=== PATIENT | female | born 1970 | race Caucasian/White ===

== ENCOUNTER 2020-01-04 20:42 | Outpatient (CLI) | payer MEDICAID | END 2020-01-04 20:43 | disposition critical access hospital (66) | LOC: EMS 20:42 → MERGE 20:42 → EMS 20:43 | PROVIDERS: ATTEND Surgery | DX: R46.89 Other symptoms and signs involving appearance and behavior (principal) | CPT/HCPCS: A0425; A0429; A0999 ==

== ENCOUNTER 2020-01-04 20:59 | Emergency (ER) | payer MEDICAID ==
--- NOTE | 2020-01-04 21:08 | ED Physician Documentation ---
PD HPI OVERDOSE - Stated complaint Stated Complaint: NON VERBAL - History obtained from History obtained from: EMS - History of Present Illness Timing - onset: Other (Reportedly has been seen by law enforcement several times over the last few days after using methamphetamines. Today laid down in the ditch without specific complaint. She is cooperative but pretty much nonverbal.) Review of Systems Unable to obtain: Confused PD PAST MEDICAL HISTORY - Past Medical History Past Medical History: Yes - Allergies Allergies/Adverse Reactions: Allergies Allergy/AdvReac Type Severity Reaction Status Date / Time No Known Drug Allergies Allergy Verified 01/04/20 22:43 - Social History Smoking Status: Current every day smoker Does the pt have substance abuse?: Yes Substance Use and Type: Meth - Family History Family history: reports: Non contributory PD ED PE NORMAL - Vitals Vital signs reviewed: Yes - General General: No acute distress, Other (She will follow simple commands and open her eyes and look around. She is trying to keep her ears covered. She smells heavily of tobacco methamphetamines. She is responsive though, for example when I mention her breath she covers her mouth for a while.) - HEENT HEENT: PERRL, EOMI, Other (Poor dentition) - Neck Neck: Supple, no meningeal sign, No bony TTP - Cardiac Cardiac: RRR, No murmur - Respiratory Respiratory: No respiratory distress, Clear bilaterally - Abdomen Abdomen: Normal bowel sounds, Soft, Non tender - Back Back: No CVA TTP, No spinal TTP - Derm Derm: Normal color, Warm and dry - Extremities Extremities: No edema, No calf tenderness / cord Results - Vitals Vitals: Vital Signs - 24 hr 01/04/20 01/04/20 21:00 22:35 Temperature 36.9 C Heart Rate 74 67 Respiratory 17 15 Rate Blood Pressure 110/61 104/67 O2 Saturation 98 96 Oxygen O2 Source Room air - Labs Labs: Laboratory Tests 01/04/20 01/04/20 01/04/20 21:30 21:30 22:09 WBC 13.8 H RBC 4.35 Hgb 12.5 Hct 37.9 MCV 87.1 MCH 28.7 MCHC 33.0 RDW 14.5 Plt Count 243 MPV 10.5 Neut # (Auto) 9.9 H Lymph # (Auto) 2.5 Mcculloch # (Auto) 1.1 H Eos # (Auto) 0.2 Baso # (Auto) 0.1 Absolute Nucleated RBC 0.00 Nucleated RBC % 0.0 Sodium 136 Potassium 3.5 Chloride 104 Carbon Dioxide 21 Anion Gap 11.0 BUN 20 Creatinine 0.8 Estimated GFR (MDRD) 77 L Glucose 107 H Calcium 8.9 Total Bilirubin 0.9 AST 25 ALT 14 Alkaline Phosphatase 83 Total Creatine Kinase 651 H Total Protein 7.2 Albumin 4.1 Globulin 3.1 Albumin/Globulin Ratio 1.3 Lipase 40 Urine Color DARK YELLOW Urine Clarity HAZY Urine pH 5.5 Ur Specific Yeoman >=1.030 H Urine Protein TRACE Urine Glucose (UA) NEGATIVE Urine Ketones 15 H Urine Occult Blood LARGE H Urine Nitrite NEGATIVE Urine Bilirubin NEGATIVE Urine Urobilinogen 0.2 (NORMAL) Ur Leukocyte Esterase NEGATIVE Urine RBC 6-10 H Urine WBC 0-3 Ur Squamous Epith Cells MANY Squamous H Urine Bacteria Many H Ur Microscopic Review INDICATED Urine Culture Comments NOT INDICATED Urine HCG, Qual NEGATIVE Salicylates < 6.0 Urine Opiates Screen POSITIVE H Ur Oxycodone Screen NEGATIVE Urine Methadone Screen NEGATIVE Ur Propoxyphene Screen NEGATIVE Acetaminophen < 10 L Ur Barbiturates Screen NEGATIVE Ur Tricyclics Screen NEGATIVE Ur Phencyclidine Scrn NEGATIVE Ur Amphetamine Screen POSITIVE H U Methamphetamines Scrn POSITIVE H U Benzodiazepines Scrn NEGATIVE Urine Cocaine Screen NEGATIVE U Cannabinoids Screen POSITIVE H Ethyl Alcohol < 5.0 PD MEDICAL DECISION MAKING - ED course ED course: 49yo woman with meth intox, nonverbal but cooperative. S/O to Dr Mixon at Shift g. metabolize versus SW in AM. Departure - Departure Clinical Impression: Methamphetamine intoxication
[2020-01-04 21:40] LABS: BASOPHILS # (AUTO) 0.1 10^3/uL (0.0-0.1); BASOPHILS % (AUTO) 0.7 %; EOSINOPHILS # (AUTO) 0.2 10^3/uL (0.0-0.7); EOSINOPHILS % (AUTO) 1.6 %; HGB - HEMOGLOBIN 12.5 g/dL (12.0-16.0); LYMPHOCYTES # (AUTO) 2.5 10^3/uL (1.5-3.5); LYMPHOCYTES % (AUTO) 17.8 %; MEAN CORPUSCULAR HEMOGLOBIN 28.7 pg (27.0-31.0); MEAN CORPUSCULAR VOLUME 87.1 fL (81.0-99.0); MEAN PLATELET VOLUME 10.5 fL (7.9-10.8); MONOCYTES # (AUTO) 1.1 10^3/uL (0.0-1.0); MONOCYTES % (AUTO) 7.7 %; NEUTROPHILS # (AUTO) 9.9 10^3/uL (1.5-6.6); NEUTROPHILS % (AUTO) 71.8 %; PLT - PLATELET COUNT 243 10^3/uL (130-450); RED BLOOD COUNT 4.35 10^6/uL (4.20-5.40); RED CELL DISTRIBUTION WIDTH 14.5 % (12.0-15.0); WHITE BLOOD COUNT 13.8 x10^3/uL (4.8-10.8)
[2020-01-04 22:00] LABS: ACETAMINOPHEN < 10 ug/mL (10-30); ALBUMIN 4.1 g/dL (3.2-5.5); ALBUMIN/GLOBULIN RATIO 1.3 (1.0-2.2); ALKALINE PHOSPHATASE 83 IU/L (42-121); ALT ALANINE AMINOTRANSFERASE 14 IU/L (10-60); AST ASPARTATE AMINOTRANSFERASE 25 IU/L (10-42); BILIRUBIN,TOTAL 0.9 mg/dL (0.2-1.0); BUN - BLOOD UREA NITROGEN 20 mg/dL (6-20); CALCIUM 8.9 mg/dL (8.5-10.3); CARBON DIOXIDE - CO2 21 mmol/L (21-32); CHLORIDE 104 mmol/L (101-111); CK- CREATINE KINASE 651 IU/L (22-269); CREATININE 0.8 mg/dL (0.4-1.0); GLUCOSE 107 mg/dL (70-100); LIPASE 40 U/L (22-51); SALICYLATE < 6.0 mg/dL; SODIUM 136 mmol/L (135-145); TOTAL PROTEIN 7.2 g/dL (6.7-8.2)
[2020-01-04 22:16] LABS: MUDS CUTOFF CONCENTRATIONS CUTOFF CONC BELOW:
[2020-01-04 22:19] LABS: BILIRUBIN,URINE NEGATIVE (NEGATIVE); GLUCOSE, URINE (UA) NEGATIVE (NEGATIVE); KETONES,URINE (UA) 15 mg/dL (NEGATIVE); LEUKOCYTE ESTERASE, URINE NEGATIVE (NEGATIVE); NITRITE,URINE NEGATIVE (NEGATIVE); OCCULT BLOOD,URINE LARGE (NEGATIVE); PH,URINE 5.5 PH (5.0-7.5); PROTEIN,URINE TRACE mg/dL (NEGATIVE); UROBILINOGEN,URINE 0.2 (NORMAL) E.U./dL (NORMAL)
[2020-01-04] MEDS ORDERED: SODIUM CHLORIDE 0.9% 1,000 ML IV STA (22:22)
[2020-01-04 22:29] LABS: COCAINE SCREEN URINE NEGATIVE (NEGATIVE)
[2020-01-04 22:30] LABS: AMPHETAMINE SCREEN,URINE POSITIVE (NEGATIVE); BENZODIAZEPINES SCREEN, URINE NEGATIVE (NEGATIVE); METHADONE SCREEN, URINE NEGATIVE (NEGATIVE); METHAMPHETAMINES SCREEN, URINE POSITIVE (NEGATIVE); OPIATE SCREEN, URINE POSITIVE (NEGATIVE); OXYCODONE SCREEN, URINE NEGATIVE (NEGATIVE); PROPOXYPHENE SCREEN, URINE NEGATIVE (NEGATIVE); TRICYCLIC ANTIDEPRESSANT,URINE NEGATIVE (NEGATIVE)
[2020-01-04 22:33] LABS: CLARITY,URINE HAZY (CLEAR); HCG UR QUAL NEGATIVE
[2020-01-04 22:34] LABS: BACTERIA,URINE Many /HPF (None Seen); SQUAMOUS EPITHELIAL CELL,UR MANY Squamous (<= Few)
[2020-01-05] MEDS ORDERED: OLANZapine ODT 5 MG TABLET TL ONE (05:20)
--- NOTE | 2020-01-05 05:53 | ED Physician Documentation ---
ED Addendum - Addendum Addendum: 01/05/20 05:50 The patient was brought in for altered mental status with nonverbal interaction apparently after meth use. On change of shift she was presented to form continued care by verbal report to give time to see if she becomes more alert and interactive. The patient does slowly become more interactive with some minimal verbal responses. However at this point she still seems a bit confused and though has directed action of walking to the bathroom and back and stating she wants to go home, she still does not seem cognizant of safety issues such as she does not really have proper clothing for outside (light underwear shirt and no shoes). She states she does live with someone but does not know their phone number. Again she still seems very sluggishly responsive and delayed processing and I do not feel she is quite safe for being discharged to just walk out as yet. However if she had someone to assume care and bring her home, I think she would be able to further improve with time at home. For now we will have her stay in the department to rest until she is either a bit more briskly coherent and better goal-directed or has somebody to give her a ride to be in safely at home.
--- NOTE | 2020-01-05 06:54 | ED Physician Documentation ---
ED Addendum - Addendum Addendum: 01/05/20 06:51 The patient has had a bit more time now and is more coherent and able to walk [place] he. She wants to be discharged and had home. When asked how she is getting there she says "I am a big girl and I will find my way". She is not having any self-harm or suicidal ideation. She is seeming more coherent. I do not see a reason to hold her here in the ER and she does seem coherent and ambulatory enough to be safe. She does seem to be safe for discharge at this time even if she is not voicing a clear plan of getting home but seems more related to not really verbally cooperating as opposed to confusion. Disposition she is discharged home in stable condition Discharge diagnoses: Methamphetamine abuse or toxicity Altered mental status, improved
[2020-01-05] MEDS ORDERED: SODIUM CHLORIDE 0.9% 1,000 ML IV STA (13:36)
[2020-01-05] MEDS ORDERED: OLANZapine 10 MG VIAL IM STA (16:18)
--- NOTE | 2020-01-05 17:22 | ED Physician Documentation ---
ED Addendum - Addendum Addendum: 01/05/20 17:21 Accepted to [facility] by Dr. Rodríguez [id number]. COBRA forms completed. Patient placed on an involuntary hold by [facility] [place] Mental status did not clear despite observation in the emergency department. Does not appear to be secondary to methamphetamine use. Departure - Departure Disposition: [facility]/Unit DC/Xfer Clinical Impression: Methamphetamine intoxication, Psychosis Altered mental status Qualifiers: Altered mental status type: delirium Qualified Code(s): R41.0 - Disorientation, unspecified Condition: Stable Instructions: ED Drug Abuse General Comments: Stay well-hydrated. Avoid recreational drug use. At home and rest and sleep well today and be safe.
[2020-01-05 19:11] VITALS: BP 93/59
== END 2020-01-05 19:19 ==
LOC: ED 20:59 → MERGE 20:59 → ED 01-05 19:19
DX: F15.129 Other stimulant abuse with intoxication, unspecified (principal); F29 Unspecified psychosis not due to a substance or known physiological condition; R41.0 Disorientation, unspecified; F17.200 Nicotine dependence, unspecified, uncomplicated
CPT/HCPCS: 36415; 80053; 80306; 80307; 80320; 80329; 81001; 81003; 81025; 82550; 83690; 85025; 87086; 96372; 99281; 99285